=== PATIENT | female | born 1950 | race Hispanic/Latino ===

== ENCOUNTER 2019-07-27 03:42 | Emergency (ER) | payer MEDICARE, OTHER ==
[~2019-07-27] VITALS: Ht 160 cm; Wt 95.3 kg
[~2019-07-27 03:42] MED LIST: ATORVASTATIN CA40 MG PO; HYDROCHLOROTHIA25 MG PO; LEVOTHYROXINE25 MCG PO; LOSARTAN POTAS100 MG PO; METFORMIN HCL500 MG PO; METOPROLOL TAR100 MG PO; OMEPRAZOLE40 MG PO
--- OUTSIDE RECORDS SUMMARY | 2019-07-27 03:44 | XMS REPORT | Continuity of Care Document ---
Author Author [facility] t Organization [facility] Address [address] [place] [address] Dr. Vel[address] [place] [address] Phone Unavailable Care Team Providers Care Dirt Contractor Name Role Phone Kassie DSOUZA MD PCP Gaye RIOS Attphys Unavailable Keli PASCUAL Attphys Unavailable Payers Payer Name Policy Type Policy Number Effective Date Expiration Date Marci Freeman [id number] 2015 00:00:00 [facility] Problems This patient has no known problems. Allergies, Adverse Reactions, Alerts Allergy Name Allergy Type Status Severity Reaction(s) Onset Date Inacti ve Date Treating Clinician Comments Source Latex Allergy to Substance Active Mild RASH 2017-01-11 00:00:00 [facility] penicillin Allergy to Substance Active 2015-11-19 00:00:00 [facility] SULFA Allergy to Substance Active Mild RASH 2015-11-19 00:00:00 [facility] Medications Ordered Medication Name Filled Medication Name Start Date Stop Da te Current Medication? Ordering Clinician Indication Dosage Frequency Signature (SIG) Comments Components Source Atorvastatin Calcium 40 Mg Tablet Atorvastatin Calcium 40 Mg Tablet Yes 40 Daily [facility] Hydrochlorothiazide 25 Mg Tablet Hydrochlorothiazide 25 Mg Tablet Yes 25 Daily [facility] Levothyroxine Sodium 25 Mcg Tablet Levothyroxine Sodium 25 Mcg Tablet Yes 25 Daily [facility] Losartan Potassium 100 Mg Tablet Losartan Potassium 100 Mg Tablet Yes 100 Daily [facility] Metformin Hcl 500 Mg Tablet Metformin Hcl 500 Mg Tablet Yes 500 Twice A Day [facility] Omeprazole 40 Mg Capsule. Omeprazole 40 Mg Capsule. Yes 40 Daily [facility] Metoprolol Tartrate 100 Mg Tablet, 100 Mg Oral Metopro lol Tartrate 100 Mg Tablet, 100 Mg Oral 2017-01-11 00:00:00 No 100 Nadine y [facility] Procedures Procedure Date / Time Performed Performing Clinician [facility] e X-ray of chest, two views 2019-03-08 00:00:00 PAULA RIOS [facility] Encounters Start Date/Time End Date/Time Encounter Type Admission Type Attendi [facility] Care Department Encounter ID Source 2019-03-07 23:34:00 2019-03-08 02:30:00 Departed Emergency Room 1 PARAM RIOS [facility] [id number] [facility] Results Test Description Test Time Test Comments Results Result Comments Source CHEST 2 VIEWS 2019-03-08 00:47:00 [facility] [address] [address] Patient Name: LUIS ALFREDO SCHUSTER MR #: [id number] : 1950 Age/Sex: 68/F Req #: [id number] Adm Physician: Ordered by: PARAM RIOS MD Report #: [id number] Location: ER Room/Bed: Procedure: [id number] DX/CHEST 2 VIEWS Exam Date: 03/08/19 Exam Time: 0025 REPORT STATUS: Signed EXAMINATION: PA and lateral views of the chest. COMPARISON: Portable chest 01/11/2017 CLINICAL HISTORY: Shortness of breath, high blood pressure DISCUSSION: Lines/tubes: None. Lungs: The lungs are well inflated. Mild prominence of perihilar interstitial markings. There is no evidence of consolidation. Pleura: There is no pleural effusion or pneumothorax. Heart and mediastinum: Mild enlargement of the cardiac silhouette. Mild central pulmonary venous congestion. Bones and soft tissues: No acute bony abnormalities. Degenerative changes in the thoracic spine IMPRESSION: Mild enlargemen t of the cardiac silhouette with mild prominence of perihilar interstitial markings which may reflect mild interstitial edema. No consolidation or effusion. Signed by: Dr. Sandeep Bond M.D. on 03/08/2019 1:03 AM Dictated By: SANDEEP BOND MD 2 Transcribed By: JENNIFER on 03/08/19102 COPY TO: PARAM RIOS MD Creatine Kinase MB 2019-03-08 00:31:00 Test Item Creatine Kinase MB (test code = 02523-5) 1.30 0-5.0 [facility]roponin [id number] 00:31:00* Test Item Value Reference Range Interpretation Comments Troponin I (test code = RIT3080) 0.009 0-0.300 [facility] Blood [id number] 00:22:00* Test Item Value Reference Range Interpretation Comments White Blood Count (test code = 6690-2) 7.35 4.8-10.8 [facility]ownRed Blood Aogxw4430-24-12 00:22:00* Test Item Value Reference Range Interpretation Comments Red Blood Count (test code = 789-8) 4.31 3.6-5.1 [facility]emoglobin2020-01-14 00:22:00* Test Item Value Reference Range Interpretation Comments Hemoglobin (test code = 97423-9) 12.1 12.0-16.0 [facility]Hematocrit2020-01-14 00:22:00* Test Item Value Reference Range Interpretation Comments Hematocrit (test code = 4544-3) 36.9 34.2-44.1 [facility]ownMean Corpuscular Krlhjd3494-68-29 00:22:00* Test Item Value Reference Range Interpretation Comments Mean Corpuscular Volume (test code = 787-2) 85.6 81-99 [facility]ownMean Corpuscular Mxqleehpdg4558-03-24 00:22:00* Test Item Value Reference Range Interpretation Comments Mean Corpuscular Hemoglobin (test code = 785-6) 28.1 28-32 [facility]ownMean Corpuscular Hemoglobin Concent 2019-03-08 00:22:00* Test Item Value Reference Range Interpretation Comments Mean Corpuscular Hemoglobin Concent (test code = 786-4) 32.8 31-35 [facility]ownRed Cell Distribution Diorg0527-40-94 00:22:00* Test Item Value Reference Range Interpretation Comments Red Cell Distribution Width (test code = 85521-0) 13.7 11.7 -14.4 [facility]ownPlatelet Mjdba8661-11-87 00:22:00* Test Item Value Reference Range Interpretation Comments Platelet Count (test code = 777-3) 292 140-360 [facility]ownNeutrophils (%) (Auto)2019-03-08 00:22:00 * Test Item Value Reference Range Interpretation Comments Neutrophils (%) (Auto) (test code = 64358-0) 48.8 38.7-80.0 [facility]ownLymphocytes (%) (Auto)2019-03-08 00:22:00 * Test Item Value Reference Range Interpretation Comments Lymphocytes (%) (Auto) (test code = 736-9) 39.0 18.0-39.1 [facility]ownMonocytes (%) (Auto)2019-03-08 00:22:00* Test Item Value Reference Range Interpretation Comments Monocytes (%) (Auto) (test code = 5905-5) 6.8 4.4-11.3 [facility]Eosinophils (%) (Auto)2019-03-08 00:22:00 * Test Item Value Reference Range Interpretation Comments Eosinophils (%) (Auto) (test code = 713-8) 4.6 0.0-6.0 [facility]Basophils (%) (Auto)2019-03-08 00:22:00* Test Item Value Reference Range Interpretation Comments Basophils (%) (Auto) (test code = 706-2) 0.5 0.0-1.0 [facility]ownIM GRANULOCYTES %2019-03-08 00:22:00* Test Item Value Reference Range Interpretation Comments IM GRANULOCYTES % (test code = IM GRANULOCYTES %) 0.3 0.0- 1.0 [facility]Neutrophils # (Auto)2019-03-08 00:22:00* Test Item Value Reference Range Interpretation Comments Neutrophils # (Auto) (test code = 751-8) 3.6 2.1-6.9 [facility]ownLymphocytes # (Auto)2019-03-08 00:22:00* Test Item Value Reference Range Interpretation Comments Lymphocytes # (Auto) (test code = 18155-8) 2.9 1.0-3.2 [facility]ownMonocytes # (Auto)2019-03-08 00:22:00* Test Item Value Reference Range Interpretation Comments Monocytes # (Auto) (test code = 742-7) 0.5 0.2-0.8 [facility]Eosinophils # (Auto)2019-03-08 00:22:00* Test Item Value Reference Range Interpretation Comments Eosinophils # (Auto) (test code = 711-2) 0.3 0.0-0.4 [facility]ownBasophils # (Auto)2019-03-08 00:22:00* Test Item Value Reference Range Interpretation Comments Basophils # (Auto) (test code = 704-7) 0.0 0.0-0.1 [facility] U[facility]ownAbsolute Immature Granulocyte (auto 2019-03-08 00:22:00* Test Item Value Reference Range Interpretation Comments Absolute Immature Granulocyte (auto (fabian t code = Absolute Immature Granulocyte (auto) 0.02 0-0.1 [facility]odium Xstgx8940-62-26 00:22:00* Test Item Value Reference Range Interpretation Comments Sodium Level (test code = 2951-2) 137 136-145 [facility]ownPotassium Zkoyl8720-40-15 00:22:00* Test Item Value Reference Range Interpretation Comments Potassium Level (test code = 2823-3) 3.4 3.5-5.1 L [facility]ownChloride Juwst7498-91-20 00:22:00* Test Item Value Reference Range Interpretation Comments Chloride Level (test code = 2075-0) 103 98-107 [facility]ownCarbon Dioxide Rnizy6921-14-36 00:22:00* Test Item Value Reference Range Interpretation Comments Carbon Dioxide Level (test code = 2028-9) 22 22-29 [facility] UptownAnion Tan0158-73-30 00:22:00* Test Item Value Reference Range Interpretation Comments Anion Gap (test code = 02846-1) 15.4 8-16 [facility]ownBlood Urea Vnpgsowt8588-26-37 00:22:00* Test Item Value Reference Range Interpretation Comments Blood Urea Nitrogen (test code = 3094-0) 21 7-26 [facility]ownCreatinine2020-01-14 00:22:00* Test Item Value Reference Range Interpretation Comments Creatinine (test code = 2160-0) 0.83 0.57-1.11 [facility]ownBUN/Creatinine Zkxow4379-88-70 00:22:00* Test Item Value Reference Range Interpretation Comments BUN/Creatinine Ratio (test code = 3097-3) 25 6-25 [facility] UptownEstimat Glomerular Filtration Rate 2019-03-08 00:22:00* Test Item Value Reference Range Interpretation Comments Estimat Glomerular Filtration Rate (test code = 253114652) > 60 >60 Ranges were taken from the National Kidney Disease Education Program and the Radha randolph healthal Kid[employer] Foundation literature.Reference ranges:60 or greater: Krfnfv52-85 ( for 3 consecutive months): Chronic kidney disease 15 or less: Kidney failureBaylor Scott & White Medical Center – UptownGlucose Lobqs8798-11-58 00:22:00* Test Item Value Reference Range Interpretation Comments Glucose Level (test code = SXA7251) 118 74-118 [facility]ptownCalcium Breoh4078-50-18 00:22:00* Test Item Value Reference Range Interpretation Comments Calcium Level (test code = 77011-6) 9.3 8.4-10.2 [facility]ownCreatine Bfunfi0081-36-88 00:22:00* Test Item Value Reference Range Interpretation Comments Creatine Kinase (test code = 2157-6) 113 34-209 [facility] HospitalCR MAMM BILATERAL REG CAD DIGITAL 2018-06-08 15:32:15 - SCR MAMM BILATERAL REG CAD DIGITALBILATERAL DIGITAL SCREENING MAMMOGRAM 3D/2D WITH CAD: 06/07/2018CLINICAL: Asymptomatic. Digital breast tomosynthesis was performed in addition to routine CC and MLO views. Current mammographic images were evaluated by either a InfraSearch M-Vu or a Dispop ImageChecker CAD (computer aided detection system). Comparison is made to exams dated 05/04/2017 mammogram, 03/11/2016 mammogram, and 12/06/2014 mammogram - [facility]. There are scattered fibroglandular tissues in both breasts. No suspicious mass, architectural distortion, malignant type calcification, or lymph node abnormality detected. Breast architecture is stable compared to prior exams.IMPRESSION: NEGATIVEThere is no mammographic evidence of malignancy. Resume annual screening mammography in one year. Maya Mccabe M.D. ar/penrad:06/08/2018 15:32:15 Certified Histologic Technician: Melissa MASON, [facility]FWletter sent: BIRADS 1-2 Normal Mammogram BI-RADS: 1 NegativeCHEST SINGLE (PORTABLE) [address] [address] Patient Name: LUIS ALFREDO SCHUSTER MR #: [id number] : 1950 Age/Sex: 66/F Req #: [id number] Adm Physician: Ordered by: AMARILYS SCHMITT Report #: [id number] Location: [facility] nair/Bed: Procedure: [id number] DX/CHEST SINGLE (PORTABLE ) Exam Date: 01/11/17 Exam Time: 1650 REPORT S TATUS: Signed EXAMINATION: Chest, CHEST SINGLE (PORTABLE) INDICATIO N: Cough. COMPARISON: Chest 2 views FINDINGS: LINES: N one. Heart: Normal cardiac silhouette. Vascular: The pulmonary vascul ature is within normal limits. Mediastinum: No mediastinal, hilar, or axil liz mass or lymphadenopathy. Lungs: No parenchymal mass. No focal consoli dation. Bibasilar atelectasis. Pleura: No pleural effusion. No pneumothor ax. Bones: No acute osseous abnormality. Degenerative changes of the thora cic spine. Soft tissues: Normal. Impression: No acute radiograph ic abnormality. Signed by: Dr. Carolyn Daley M.D. on 01/11/2017 5:05 PM Dictated By: CAROLYN DALEY MD 04 COPY TO: AMARILYS SCHMITT
--- NOTE | 2019-07-27 03:56 | Emergency Department Note ---
History of Present Illnes History of Present Illness Chief Complaint: General Medicine Complaints History of Present Illness This is a 68 year old female with multiple complaints of elevated blood pressure at home, dizziness, weakness and upper back pain. Patient states she started feeling unwell at about midnight. States she checked her blood pressure twice and it was 158/83 and 175/101. Patient took metopolol and losartan at home prior to arrival. Patient also states she feels slightly short of breath at this time. No distress noted at this time. RR even and unlabored. Patient denies chest pain. Pts complaints are all vague in nature. Pt thinks her symptoms are due to her blood pressure being elevated tonight Historian: Patient Arrival Mode: Car Client Relationship Executive Required: Yes Onset (how long ago): hour(s) (4) Location: head, back Quality: dizzy, back pain, weakness Radiation: non-radiation Severity: mild Onset quality: gradual Duration (how long): hour(s) (4) Timing of current episode: constant Progression: unchanged Chronicity: new Context: recent illness, recent surgery Relieving factors: none Exacerbating factors: none Associated symptoms: malaise, shortness of breath, weakness Past Medical/Family History Physician Review I have reviewed the patient's past medical and family history. Any updates have been documented here. Past Medical History Recent Fever: No Clinical Suspicion of Infectio: No New/Unexplained Change in Ment: No Past Medical History: Hypertension, Diabetes, Hypothyroidism, GERD Past Surgical History: Cholecysctectomy Other Surgery: R FOOT Social History Smoking Cessation: Never Smoker Alcohol Use: None Any Illegal Drug Use: No Other Last Tetanus: UTD Review of Systems Review of Systems Constitutional: no symptoms EENTM: no symptoms Cardiovascular: no symptoms Respiratory: as per HPI Gastrointestinal: no symptoms Genitourinary: no symptoms Musculoskeletal: no symptoms Neurological: as per HPI Psychological: no symptoms Endocrine: no symptoms Hematological/Lymphatic: no symptoms Review of other systems All other systems reviewed and negative. Physical Exam Related Data Allergies: Coded Allergies: latex (Verified Allergy, Mild, RASH, 01/11/17) penicillin (Verified Allergy, Unknown, 11/19/15) Uncoded Allergies: SULFA (Allergy, Mild, RASH, 11/19/15) Triage Vital Signs Vital Signs Date Time Temp Pulse Resp B/P (MAP) Pulse Ox O2 Delivery O2 Flow Rate FiO2 07/27/19 03:44 97.3 68 20 168/96 100 Vital signs reviewed: Yes Physical Exam CONSTITUTIONAL Constitutional: well-developed, well-nourished HENT HENT: normocephalic, atraumatic, oropharynx clear/moist, nose normal HENT L/R: left ext ear normal, right ext ear normal EYES Eyes: PERRL, conjunctivae normal NECK Neck: ROM normal PULMONARY Pulmonary: effort normal, breath sounds normal CARDIOVASCULAR Cardiovascular: regular rhythm, heart sounds normal, capillary refill normal, normal rate GASTROINTESTINAL Abdominal: soft, nontender, bowel sounds normal GENITOURINARY Genitourinary: exam deferred SKIN Skin: warm, dry MUSCULOSKELETAL Musculoskeletal: ROM normal NEUROLOGICAL Neurological: alert, oriented x 3, no gross motor or sensory deficits PSYCHOLOGICAL Psychological: mood/affect normal, judgement normal Results Laboratory Laboratory Laboratory Tests Test 07/27/19 03:50 White Blood Count 7.33 x10e3/uL (4.8-10.8) Red Blood Count 4.51 x10e6/uL (3.6-5.1) Hemoglobin 12.9 g/dL (12.0-16.0) Hematocrit 39.7 % (34.2-44.1) Mean Corpuscular Volume 88.0 fL (81-99) Mean Corpuscular Hemoglobin 28.6 pg (28-32) Mean Corpuscular Hemoglobin Concent 32.5 g/dL (31-35) Red Cell Distribution Width 13.7 % (11.7-14.4) Platelet Count 330 x10e3/uL (140-360) Neutrophils (%) (Auto) 51.1 % (38.7-80.0) Lymphocytes (%) (Auto) 34.9 % (18.0-39.1) Monocytes (%) (Auto) 6.5 % (4.4-11.3) Eosinophils (%) (Auto) 6.1 % (0.0-6.0) Basophils (%) (Auto) 1.0 % (0.0-1.0) Neutrophils # (Auto) 3.7 (2.1-6.9) Lymphocytes # (Auto) 2.6 (1.0-3.2) Monocytes # (Auto) 0.5 (0.2-0.8) Eosinophils # (Auto) 0.5 (0.0-0.4) Basophils # (Auto) 0.1 (0.0-0.1) Absolute Immature Granulocyte (auto 0.03 x10e3/uL (0-0.1) Urine Color Yellow (YELLOW) Urine Clarity Clear (CLEAR) Urine pH 6.5 (5 - 7) Urine Specific [place] 1.025 (1.010-1.025) Urine Protein Negative (NEGATIVE) Urine Glucose (UA) Negative (NEGATIVE) Urine Ketones Negative (NEGATIVE) Urine Blood Negative (NEGATIVE) Urine Nitrite Negative (NEGATIVE) Urine Bilirubin Negative (NEGATIVE) Urine Urobilinogen 0.2 mg/dL (0.2 - 1) Urine Leukocyte Esterase 1+ (NEGATIVE) Urine RBC 6-10 /HPF (0-5) Urine WBC 21-50 /HPF (0-5) Urine Epithelial Cells Few /LPF (NONE) Urine Transitional Epithelial Cells Few (NONE) Urine Renal Epithelial Cells Few (NONE) Urine Bacteria Moderate /HPF (NONE) Urine Coarse Granular Casts 1-5 (0) Sodium Level 141 mmol/L (136-145) Potassium Level 4.3 mmol/L (3.5-5.1) Chloride Level 102 mmol/L (98-107) Carbon Dioxide Level 24 mmol/L (22-29) Anion Gap 19.3 mmol/L (8-16) Blood Urea Nitrogen 17 mg/dL (7-26) Creatinine 1.08 mg/dL (0.57-1.11) Estimat Glomerular Filtration Rate 50 ML/MIN (60-) BUN/Creatinine Ratio 16 (6-25) Glucose Level 135 mg/dL (74-118) Calcium Level 10.3 mg/dL (8.4-10.2) Total Bilirubin 0.3 mg/dL (0.2-1.2) Aspartate Amino Transf (AST/SGOT) 14 IU/L (5-34) Alanine Aminotransferase (ALT/SGPT) 17 IU/L (0-55) Alkaline Phosphatase 62 IU/L (40-150) Creatine Kinase 117 IU/L (29-168) Creatine Kinase MB 0.80 ng/mL (0-5.0) Troponin I 0.007 ng/mL (0-0.300) Total Protein 7.5 g/dL (6.5-8.1) Albumin 4.4 g/dL (3.5-5.0) Globulin 3.1 g/dL (2.3-3.5) Albumin/Globulin Ratio 1.4 (0.8-2.0) Lab results reviewed: Yes Laboratory comments pt has a uti Imaging Imaging results reviewed: Yes Impressions Procedure: DX/CHEST SINGLE (PORTABLE) Exam Date: 07/27/19 Exam Time: 0405 REPORT STATUS: Signed EXAMINATION: CHEST SINGLE (PORTABLE) COMPARISON: Chest x-ray 03/08/2019 INDICATION: Shortness of breath ^SOB ^[id number] ^0405 ^Y DISCUSSION: Frontal view of the chest obtained at 0409 hours. HEART AND MEDIASTINUM: Stable cardiomegaly and aortic tortuosity LINES: None. LUNGS: The lungs are well-inflated. No evidence of infiltrate or interstitial edema. Vascular markings are normal. PLEURA: No pleural effusion or pneumothorax. BONES AND SOFT TISSUES: No focal osseous lesion. The soft tissues are normal. IMPRESSION: Stable cardiomegaly. No evidence of CHF. No acute pulmonary process. Signed by: Dr. Yannick Ballard MD on 07/27/2019 4:47 AM Procedures 12 Lead ECG Interpretation Client Relationship Executive: Interpreted by ED physician Rhythm: sinus rhythm Rate: normal BPM: 67 QRS axis: normal ST segments normal: Yes T waves normal: Yes Other findings: no other findings Clinical Impression: normal ECG Critical Care Time Subsequent provider I assumed direction of critical care for this patient from another provider of my specialty. Assessment & Plan Assessment & Plan Final Impression: (1) ESSENTIAL (PRIMARY) HYPERTENSION (2) ACUTE CYSTITIS WITH HEMATURIA Assessment & Plan pt with multiple vague complaints who is in no apparent distress cbc, cmp, ekg, cxr, cardiac enzymes, ua ordered to eval for electrolyte abnormality, uti, pneumonia, myocardial infarction PT HAS UTI DISCHARGED HOME WITH SCRIPT FOR MACROBID 100 MG PO BID FOR 10 DAYS Depart Disposition: HOME, SELF-CARE Last Vital Signs Date Time Temp Pulse Resp B/P (MAP) Pulse Ox O2 Delivery O2 Flow Rate FiO2 07/27/19 03:44 97.3 68 20 168/96 100 Home Meds Reported Medications Metformin Hcl (METFORMIN HCL) 500 Mg Tablet, 500 MG PO BID, #60 TAB 11/19/15 Hydrochlorothiazide (HYDROCHLOROTHIAZIDE) 25 Mg Tablet, 25 MG PO DAILY, #30 TAB 11/19/15 Losartan Potassium (LOSARTAN POTASSIUM) 100 Mg Tablet, 100 MG PO DAILY, TAB 11/19/15 Atorvastatin Calcium (ATORVASTATIN CALCIUM) 40 Mg Tablet, 40 MG PO DAILY, TAB 11/19/15 Levothyroxine Sodium (LEVOTHYROXINE SODIUM) 25 Mcg Tablet, 25 MCG PO DAILY 11/19/15 Omeprazole (OMEPRAZOLE) 40 Mg Capsule.dr, 40 MG PO DAILY 11/19/15 PARAM RIOS MD Jul 27, 2019 03:56
[2019-07-27 04:09] LABS: BASOPHILS # (AUTO) 0.1 (0.0-0.1); EOSINOPHILS # (AUTO) 0.5 (0.0-0.4); EOSINOPHILS % 6.1 % (0.0-6.0); HEMATOCRIT 39.7 % (34.2-44.1); HEMOGLOBIN 12.9 g/dL (12.0-16.0); LYMPHOCYTES # (AUTO) 2.6 (1.0-3.2); LYMPHOCYTES % 34.9 % (18.0-39.1); MEAN CORPUSCULAR HEMOGLOBIN 28.6 pg (28-32); MEAN CORPUSCULAR HGB CONC 32.5 g/dL (31-35); MONOCYTES # (AUTO) 0.5 (0.2-0.8); MONOCYTES % 6.5 % (4.4-11.3); NEUTROPHILS # (AUTO) 3.7 (2.1-6.9); NEUTROPHILS % 51.1 % (38.7-80.0); PLATELET COUNT 330 x10e3/uL (140-360); RED BLOOD COUNT 4.51 x10e6/uL (3.6-5.1); RED CELL DISTRIBUTION WIDTH 13.7 % (11.7-14.4)
[2019-07-27 04:12] LABS: BILIRUBIN,URINE NEGATIVE (NEGATIVE); CLARITY,URINE CLEAR (CLEAR); COLOR,URINE YELLOW (YELLOW); KETONES,URINE NEGATIVE (NEGATIVE); LEUKOCYTE ESTERASE ,URINE 1+ (NEGATIVE); NITRITE,URINE NEGATIVE (NEGATIVE); PROTEIN,URINE DIPSTICK NEGATIVE (NEGATIVE); URINE UROBILINOGEN 0.2 mg/dL (0.2 - 1)
[2019-07-27 04:30] LABS: ALBUMIN 4.4 g/dL (3.5-5.0); ALBUMIN/GLOBULIN RATIO 1.4 (0.8-2.0); ANION GAP 19.3 mmol/L (8-16); CALCIUM 10.3 mg/dL (8.4-10.2); CREATININE, SERUM 1.08 mg/dL (0.57-1.11); POTASSIUM 4.3 mmol/L (3.5-5.1)
[2019-07-27 04:37] LABS: CREATINE KINASE MB 0.8 ng/mL (0-5.0)
[2019-07-27 04:44] LABS: BACTERIA,URINE MODERATE /HPF; EPITHELIAL CELLS,URINE FEW /LPF; RENAL EPITHELIAL CELLS,URINE FEW; TRANSITIONAL EPI CELLS,URINE FEW; WBC,URINE (MAN) 21-50 /HPF (0-5)
--- NOTE | 2019-07-27 04:50 | Diagnostic Imaging Report ---
EXAMINATION: CHEST SINGLE (PORTABLE) COMPARISON: Chest x-ray 03/08/2019 INDICATION: Shortness of breath ^SOB ^[id number] ^0405 ^Y DISCUSSION: Frontal view of the chest obtained at 0409 hours. HEART AND MEDIASTINUM: Stable cardiomegaly and aortic tortuosity LINES: None. LUNGS: The lungs are well-inflated. No evidence of infiltrate or interstitial edema. Vascular markings are normal. PLEURA: No pleural effusion or pneumothorax. BONES AND SOFT TISSUES: No focal osseous lesion. The soft tissues are normal. IMPRESSION: Stable cardiomegaly. No evidence of CHF. No acute pulmonary process. Signed by: Dr. Yannick Ballard MD on 07/27/2019 4:47 AM
[2019-07-27 04:58] VITALS: BP 157/71
== END 2019-07-27 05:08 | disposition home or self-care (01) ==
LOC: ER 03:42
DX: I10 Essential (primary) hypertension (principal); R42 Dizziness and giddiness; R53.1 Weakness; N30.01 Acute cystitis with hematuria; E11.9 Type 2 diabetes mellitus without complications; E03.9 Hypothyroidism, unspecified
CPT/HCPCS: 36415; 71045; 80053; 81001; 82550; 82553; 84484; 85025; 93005; 99284

== ENCOUNTER 2020-12-14 18:54 | Emergency (ER) | payer MEDICARE ==
[~2020-12-14] VITALS: Ht 160 cm; Wt 95.3 kg
[2020-12-14 19:40] LABS: BASOPHILS # (AUTO) 0.1 (0.0-0.1); BASOPHILS % 0.5 % (0.0-1.0); CLARITY,URINE CLEAR (CLEAR); COLOR,URINE YELLOW (YELLOW); EOSINOPHILS # (AUTO) 0.5 (0.0-0.4); EOSINOPHILS % 4.6 % (0.0-6.0); HEMATOCRIT 36.8 % (34.2-44.1); LYMPHOCYTES # (AUTO) 3.1 (1.0-3.2); LYMPHOCYTES % 30.2 % (18.0-39.1); MEAN CORPUSCULAR HEMOGLOBIN 27.6 pg (28-32); MEAN CORPUSCULAR HGB CONC 32.6 g/dL (31-35); MEAN CORPUSCULAR VOLUME 84.8 fL (81-99); MONOCYTES # (AUTO) 0.6 (0.2-0.8); MONOCYTES % 5.9 % (4.4-11.3); NEUTROPHILS # (AUTO) 5.9 (2.1-6.9); NEUTROPHILS % 58.4 % (38.7-80.0); PLATELET COUNT 303 x10e3/uL (140-360); RED BLOOD COUNT 4.34 x10e6/uL (3.6-5.1); RED CELL DISTRIBUTION WIDTH 14.5 % (11.7-14.4)
[2020-12-14 19:41] LABS: KETONES,URINE NEGATIVE (NEGATIVE); LEUKOCYTE ESTERASE ,URINE TRACE (NEGATIVE); NITRITE,URINE NEGATIVE (NEGATIVE); PROTEIN,URINE DIPSTICK NEGATIVE (NEGATIVE); URINE UROBILINOGEN 0.2 mg/dL (0.2 - 1)
[2020-12-14 19:54] LABS: CHOL/HDL RATIO 5.5 (3.0-3.6)
[2020-12-14 19:57] LABS: BACTERIA,URINE MODERATE /HPF; WBC,URINE (MAN) 0-5 /HPF (0-5)
[2020-12-14 20:02] LABS: ALBUMIN 4.4 g/dL (3.5-5.0); ALBUMIN/GLOBULIN RATIO 1.6 (0.8-2.0); CALCIUM 10.1 mg/dL (8.4-10.2); CREATININE, SERUM 0.88 mg/dL (0.57-1.11)
[2020-12-14] MEDS ORDERED: IOPAMIDOL 370 MG/ML 200 ML INFUS..BTL INJ ONE (20:36)
[2020-12-14] MEDS ORDERED: SODIUM CHLORIDE 0.9% 50ML 50 ML ONE (20:37)
== END 2020-12-14 22:23 | disposition home or self-care (01) ==
LOC: ER 19:47
DX: R10.32 Left lower quadrant pain (principal); E11.9 Type 2 diabetes mellitus without complications; K57.92 Diverticulitis of intestine, part unspecified, without perforation or abscess without bleeding; I10 Essential (primary) hypertension; E03.9 Hypothyroidism, unspecified; K21.9 Gastro-esophageal reflux disease without esophagitis
CPT/HCPCS: 36415; 74177; 80053; 80061; 81001; 83690; 85025; 99283; Q9967

== ENCOUNTER 2024-05-09 05:55 | Emergency (ER) | payer MEDICARE ==
[~2024-05-09] VITALS: Ht 160 cm; Wt 77.1 kg
[~2024-05-09 05:55] MED LIST changes: +EPIFOAM FOAM10 GM TOP
[2024-05-09 05:59] VITALS: PULSE 72; RESP 19; TEMP 98.1; O2SAT 100
[2024-05-09] MEDS ORDERED: SODIUM CHLORIDE 0.9% 1000ML 1,000 ML IV SCH (06:30)
[2024-05-09 06:42] LABS: BASOPHILS # (AUTO) 0.1 (0.0-0.1); BASOPHILS % 0.8 % (0.0-1.0); EOSINOPHILS # (AUTO) 0.3 (0.0-0.4); HEMATOCRIT 39.8 % (34.2-44.1); HEMOGLOBIN 13.2 g/dL (12.0-16.0); LYMPHOCYTES # (AUTO) 2.2 (1.0-3.2); LYMPHOCYTES % 36.5 % (18.0-39.1); MEAN CORPUSCULAR HEMOGLOBIN 29.9 pg (28-32); MEAN CORPUSCULAR HGB CONC 33.2 g/dL (31-35); MONOCYTES # (AUTO) 0.4 (0.2-0.8); MONOCYTES % 6.8 % (4.4-11.3); NEUTROPHILS # (AUTO) 3.1 (2.1-6.9); NEUTROPHILS % 50.7 % (38.7-80.0); PLATELET COUNT 257 x10e3/uL (140-360); RED BLOOD COUNT 4.42 x10e6/uL (3.6-5.1); RED CELL DISTRIBUTION WIDTH 12.8 % (11.7-14.4); WHITE BLOOD COUNT 6.14 x10e3/uL (4.8-10.8)
[2024-05-09 07:11] LABS: ALBUMIN/GLOBULIN RATIO 1.5 (0.8-2.0); ANION GAP 14.5 mmol/L (8-16); BILIRUBIN,TOTAL 0.7 mg/dL (0.2-1.2); CALCIUM 9.6 mg/dL (8.4-10.2); CREATININE, SERUM 0.8 mg/dL (0.57-1.11); POTASSIUM 3.5 mmol/L (3.5-5.1); TOTAL PROTEIN 6.6 g/dL (6.5-8.1)
[2024-05-09 07:12] LABS: BILIRUBIN,URINE NEGATIVE (NEGATIVE); CLARITY,URINE CLEAR (CLEAR); COLOR,URINE YELLOW (YELLOW); GLUCOSE, URINE NEGATIVE (NEGATIVE); KETONES,URINE NEGATIVE (NEGATIVE); LEUKOCYTE ESTERASE ,URINE NEGATIVE (NEGATIVE); NITRITE,URINE NEGATIVE (NEGATIVE); PH,URINE 7 (5 - 7); PROTEIN,URINE DIPSTICK NEGATIVE (NEGATIVE); URINE UROBILINOGEN 0.2 mg/dL (0.2 - 1)
[2024-05-09 07:50] LABS: BACTERIA,URINE MANY /HPF; EPITHELIAL CELLS,URINE RARE /LPF; RBC,URINE 0-5 /HPF (0-5)
[2024-05-09] MEDS: KETOROLAC TROMETHAMINE 30 MG/ML VIAL IV STA (07:55)
[2024-05-09] MEDS ORDERED: CEFDINIR300 MG PO (07:59)
== END 2024-05-09 08:24 | disposition home or self-care (01) ==
LOC: ER 06:08
DX: R53.1 Weakness (principal); N39.0 Urinary tract infection, site not specified; W06.XXXA Fall from bed, initial encounter; Y93.84 Activity, sleeping; Y92.89 Other specified places as the place of occurrence of the external cause; I10 Essential (primary) hypertension; E11.9 Type 2 diabetes mellitus without complications; E78.5 Hyperlipidemia, unspecified; E03.9 Hypothyroidism, unspecified; K21.9 Gastro-esophageal reflux disease without esophagitis; M19.09 Primary osteoarthritis, other specified site
CPT/HCPCS: 36415; 70450; 71045; 72125; 80053; 81001; 84484; 85025; 93005; 99284; J1885

== ENCOUNTER → 2024-07-28 | Day surgery (SDC) | payer MEDICARE ==
[~2024-07-28] MED LIST changes: +AMLODIPINE BESYL5 MG PO; +BRAIN MIGHT-DH1 EACH PO; +CEFDINIR300 MG PO; +EPHEDRINE SULFATE INJ 50 MG/ML VIAL ONE; +GLUCAGON FOR INJ 1 MG VIAL ONE; +HYOSCYAMINE SULFATE 0.5 MG/ML INJ ONE; +LIDOCAINE HCL 2% LOCAL INJ 5 ML SDV VIAL INJ ONE; +MULTIVITAMIN PO; +PROPOFOL IV EMULSION 50 ML IV ONE; +TOPROL XL100 MG PO
[2024-07-28 09:08] LABS: BASOPHILS % 0.4 % (0.0-1.0); EOSINOPHILS # (AUTO) 0.1 (0.0-0.4); EOSINOPHILS % 1.6 % (0.0-6.0); HEMATOCRIT 42.5 % (34.2-44.1); HEMOGLOBIN 14.1 g/dL (12.0-16.0); LYMPHOCYTES # (AUTO) 1.2 (1.0-3.2); LYMPHOCYTES % 14.1 % (18.0-39.1); MEAN CORPUSCULAR HGB CONC 33.2 g/dL (31-35); MEAN CORPUSCULAR VOLUME 90.4 fL (81-99); MONOCYTES # (AUTO) 0.3 (0.2-0.8); MONOCYTES % 3.5 % (4.4-11.3); NEUTROPHILS # (AUTO) 6.7 (2.1-6.9); NEUTROPHILS % 80.3 % (38.7-80.0); PLATELET COUNT 262 x10e3/uL (140-360); RED CELL DISTRIBUTION WIDTH 13.2 % (11.7-14.4); WHITE BLOOD COUNT 8.31 x10e3/uL (4.8-10.8)
[2024-07-28] MEDS: LACTATED RINGER'S 1,000 ML ONE (09:27)
[2024-07-28 10:38] VITALS: TEMP 97.8
[2024-07-28 11:25] VITALS: BP 129/67; PULSE 59; RESP 16; O2SAT 97
== END | disposition home or self-care (01) ==
LOC: OR 08:05
PROVIDERS: ATTEND Internal Medicine Gastroenterology
DX: K59.00 Constipation, unspecified (principal); Z86.0100 Personal history of colon polyps, unspecified; K57.90 Diverticulosis of intestine, part unspecified, without perforation or abscess without bleeding; K64.8 Other hemorrhoids; I10 Essential (primary) hypertension; E11.9 Type 2 diabetes mellitus without complications; E03.9 Hypothyroidism, unspecified; M81.0 Age-related osteoporosis without current pathological fracture; Z90.49 Acquired absence of other specified parts of digestive tract; Z68.31 Body mass index [BMI] 31.0-31.9, adult; Z79.899 Other long term (current) drug therapy; E78.5 Hyperlipidemia, unspecified; K21.9 Gastro-esophageal reflux disease without esophagitis; E66.01 Morbid (severe) obesity due to excess calories; Z79.84 Long term (current) use of oral hypoglycemic drugs
CPT/HCPCS: 36415; 45378; 82948; 85025; 93005; J1610; J1980; J2003; J2704; J7121

== ENCOUNTER 2024-08-01 16:28 | Emergency (ER) | payer MEDICARE ==
[~2024-08-01] VITALS: Ht 160 cm; Wt 74.8 kg
[~2024-08-01 16:28] MED LIST changes: -EPHEDRINE SULFATE INJ 50 MG/ML VIAL ONE; -GLUCAGON FOR INJ 1 MG VIAL ONE; -HYOSCYAMINE SULFATE 0.5 MG/ML INJ ONE; -LIDOCAINE HCL 2% LOCAL INJ 5 ML SDV VIAL INJ ONE; -PROPOFOL IV EMULSION 50 ML IV ONE
[2024-08-01 16:35] VITALS: TEMP 98.3
[2024-08-01] MEDS: ACETAMINOPHEN 325 MG TAB PO ONE (16:59)
[2024-08-01 17:55] VITALS: RESP 16
[2024-08-01 18:30] VITALS: PULSE 58
[2024-08-01 18:57] VITALS: BP 121/64; O2SAT 97
== END 2024-08-01 18:58 | disposition home or self-care (01) ==
LOC: ER 16:49
DX: S00.83XA Contusion of other part of head, initial encounter (principal); W01.198A Fall on same level from slipping, tripping and stumbling with subsequent striking against other object, initial encounter; Y93.01 Activity, walking, marching and hiking; Y92.89 Other specified places as the place of occurrence of the external cause; I10 Essential (primary) hypertension; E11.9 Type 2 diabetes mellitus without complications; E78.5 Hyperlipidemia, unspecified; E03.9 Hypothyroidism, unspecified; K21.9 Gastro-esophageal reflux disease without esophagitis
CPT/HCPCS: 70450; 72125; 99283

== ENCOUNTER 2024-08-12 10:58 | Emergency (ER) | payer MEDICARE ==
[~2024-08-12] VITALS: Ht 160 cm; Wt 74.8 kg
[2024-08-12 11:31] VITALS: TEMP 97.9
[2024-08-12 14:10] VITALS: PULSE 56; RESP 16
[2024-08-12 17:58] VITALS: BP 129/65; PULSE 89; RESP 17; TEMP 98.3; O2SAT 98
== END 2024-08-12 16:49 | disposition home or self-care (01) ==
LOC: ER 11:48
DX: S30.0XXA Contusion of lower back and pelvis, initial encounter (principal); W18.39XA Other fall on same level, initial encounter; Y92.89 Other specified places as the place of occurrence of the external cause; M47.898 Other spondylosis, sacral and sacrococcygeal region; I10 Essential (primary) hypertension; E11.9 Type 2 diabetes mellitus without complications; E78.5 Hyperlipidemia, unspecified; E03.9 Hypothyroidism, unspecified; K21.9 Gastro-esophageal reflux disease without esophagitis; M19.09 Primary osteoarthritis, other specified site
CPT/HCPCS: 36415; 72131; 82948; 99283